=== PATIENT | female | born 1960 | race Caucasian/White ===

== ENCOUNTER 2019-01-06 10:55 | Emergency (ER) | payer BC ==
[2019-01-06 12:03] VITALS: BP 154/84
--- NOTE | 2019-01-06 13:27 | UC ---
Throat Pain/Nasal Osito HPI - HPI Summary HPI Summary: This is a 58-year-old female with a history of environmental allergies who comes in complaining of 7 days of increasing congestion and pain over the sinuses. She states that each year she has this because of her allergies. She treats it in a number of ways including steroid nasal spray and nonsedating antihistamines. At this point she complains of increasing pain and yellow discharge from the nose. - History of Current Complaint Chief Complaint: UCRespiratory Stated Complaint: SINUS Time Seen by Provider: 01/06/19 13:18 Pain Intensity: 4 - Allergies/Home Medications Home Medications: Home Medications Ergocalciferol (Vitamin D2) 1 tab PO 01/06/19 [History] Escitalopram * [Lexapro *] 20 mg PO DAILY 01/06/19 [History Confirmed 01/06/19] Lisinopril TAB* [Prinivil TAB 10 MG*] 40 mg PO DAILY 01/06/19 [History Confirmed 01/06/19] PMH/Surg Hx/FS Hx/Imm Hx - Additional Past Medical History Additional PMH: PMH: hysterectomy; benign breast lesions on the right. Patient is visiting. Social hx: lives with . Family history: HTN, cancer. - Surgical History Surgical History: Yes Surgery Procedure, Year, and Place: brst biposy,hyster - Social History Alcohol Use: None Substance Use Type: None Smoking Status (MU): Never Smoked Tobacco Review of Systems All Other Systems Reviewed And Are Negative: Yes Constitutional: Positive: Negative. Negative: Fever ENT: Positive: Sinus Congestion, Sinus Pain/Tenderness Respiratory: Positive: Negative. Negative: Shortness Of Breath, Cough Cardiovascular: Positive: Negative. Negative: Palpitations Gastrointestinal: Positive: Negative. Negative: Abdominal Pain Is Patient Immunocompromised?: No Physical Exam Triage Information Reviewed: Yes Appearance: Well-Appearing Vital Signs: Initial Vital Signs Temp 98 F 01/06/19 12:00 Pulse 78 01/06/19 12:00 Resp 18 01/06/19 12:00 BP 154/84 01/06/19 12:00 Pulse Ox 100 01/06/19 12:00 Vital Signs Reviewed: Yes Eye Exam: Normal ENT: Positive: Sinus tenderness - maxillary Neck: Positive: Supple Respiratory Exam: Normal Respiratory: Positive: Chest non-tender, Lungs clear, Normal breath sounds Cardiovascular Exam: Normal Cardiovascular: Positive: RRR, No Murmur Abdomen Description: Positive: Nontender, No Organomegaly Throat Pain/Nasal Course/Dx - Course Course Of Treatment: This is a 58-year-old female with a history of environmental allergies who comes in complaining of 7 days of increasing congestion and pain over the sinuses. She states that each year she has this because of her allergies. She treats it in a number of ways including steroid nasal spray and nonsedating antihistamines. At this point she complains of increasing pain and yellow discharge from the nose. There is no facial rash or evidence of nasal irritation. The patient is hypertensive at 154/84, but is being treated with lisinopril. Review of systems and past medical history are noncontributory except as noted. She has had a hysterectomy and benign lesions removed from her right breast. Her family history is significant for hypertension and cancer. Physical exam shows pain over the maxillary and frontal sinuses. My diagnosis is sinusitis and I will treat the patient with amoxicillin. Medications have been reviewed. Hypertension status reviewed. Patient will recheck her blood pressure over the next month. - Differential Dx/Diagnosis Differential Diagnosis/HQI/PQRI: Pharyngitis, Sinusitis, Tonsillitis Provider Diagnosis: Sinusitis Discharge - Sign-Out/Discharge Documenting (check all that apply): Patient Departure All imaging exams completed and their final reports reviewed: No Studies - Discharge Plan Condition: Stable Disposition: HOME Prescriptions: Amoxicillin PO (*) [Amoxicillin 875 MG (*)] 875 mg PO BID #14 tab MDD 2 Patient Education Materials: Sinusitis (ED) Referrals: No Primary Care Phys,NOPCP [Primary Care Provider] - Additional Instructions: WE DISCUSSED: you have SINUSITIS. Take Amoxicillin, twice a day for 7 days. Lots of hydration and warm water on the front of your face will help drain your sinuses. Recheck at any time if you have increased pain, temperature or new symptoms. - Billing Disposition and Condition Condition: STABLE Disposition: Home
== END 2019-01-06 13:38 | disposition home or self-care (01) ==
LOC: UCEAST 10:55
DX: J32.9 Chronic sinusitis, unspecified (principal); I10 Essential (primary) hypertension
CPT/HCPCS: 99202; G0463